=== PATIENT | male | born 1955 | race African-American/Black ===

== ENCOUNTER 2017-07-16 16:17 | Emergency (ER) | payer SELFPAY ==
[~2017-07-16] VITALS: Ht 175.3 cm; Wt 81.6 kg
--- NOTE | 2017-07-16 17:09 | Emergency Room Report ---
History of Present Illness General Chief Complaint: Pain Source: Patient Present Illness HPI Patient presents with right leg pain. He is unable to sleep and the pain is worsened for 3 days. He had the same problem several years ago but doesn't remember what the diagnosis was. He says it doesn't seem to have "sciatica". He denies any recent trauma, fever, blood thinners, incontinence, saddle numbness, oncologic problems. Not taking any medications. Pain now is 10/10, constant, radiating down his R leg. No dysuria, chest pain, dyspnea, calf pain/swelling, hemoptysis, weakness. No change in bowels. Allergies: Coded Allergies: No Known Allergies (Unverified , 07/16/17) Patient History Past Medical History: see triage record Social History: Reports: smoking Social History Narrative landscape architect Reviewed Nursing Documentation: PMH: Agreed, PSxH: Agreed Nursing Documentation-PMH Past Medical History: No Stated History Review of Systems All Other Systems: negative except mentioned in HPI Physical Exam Vital Signs Date Time Temp Pulse Resp B/P (MAP) Pulse Ox O2 Delivery O2 Flow Rate FiO2 07/16/17 16:25 98.2 85 17 176/102 98 Room Air Sp02 EP Interpretation: reviewed, normal General Appearance: well appearing, no apparent distress, GCS 15, non-toxic Head: normocephalic, atraumatic Eyes: bilateral eye PERRL, bilateral eye abnormal EOM - dyscongugate gaze ENT: hearing grossly normal, normal voice, moist mucus membranes Neck: full range of motion, supple Respiratory: normal breath sounds, no respiratory distress, speaking full sentences Cardiovascular #1: regular rate, rhythm Cardiovascular #2: 2+ radial (R) Gastrointestinal: normal inspection, non tender, scaphoid Musculoskeletal: digits/nails normal, no calf tenderness, pelvis stable, other - SLR + R at 45 degrees, worsens pain. Back with some muscle spasm, no deformity, walks with limp Neurologic: alert, oriented x3, motor strength/tone normal - slight weak toe raise (WHL), DTRs symmetric, sensory intact, cerebellar normal, speech normal Psychiatric: mood/affect normal Reflexes: 1+ knee (R), 1+ knee (L), 1+ ankle (R), 1+ ankle (L) Skin: no rash Medical Decision Making Diagnostic Impression: Primary Impression: Sciatica Qualified Codes: M54.31 - Sciatica, right side ER Course Patient presents with R leg pain. Ddx: sciatica, strain, DVT, arthritis, gout amongst others. Exam against DVT and most consistent with sciatica. No red flag signs or symptoms. Will treat with antiinflammatory meds and analgesia. Giving motrin. Advised patient that if pain not controlled to return and further studies would be performed. Patient stable for outpatient observation and treatment. Last Vital Signs Date Time Temp Pulse Resp B/P (MAP) Pulse Ox O2 Delivery O2 Flow Rate FiO2 07/16/17 17:38 97.6 78 16 159/98 100 Room Air Status: improved Disposition: HOME, SELF-CARE Condition: Improved Scripts Ibuprofen* (MOTRIN*) 600 Mg Tablet 600 MG ORAL Q6H Y for For Pain, #20 TAB Prov: Tobias Ayala M.D. 07/16/17 Tramadol Hcl* (ULTRAM*) 50 Mg Tablet 50 MG ORAL Q6H Y for For Pain, #16 TAB 0 Refills Prov: Tobias Ayala M.D. 07/16/17 Tobias Ayala M.D. Jul 16, 2017 17:09
[2017-07-16] MEDS ORDERED: TRAMADOL HCL50 MG ORAL (17:13)
[2017-07-16] MEDS ORDERED: IBUPROFEN600 MG ORAL (17:13)
[2017-07-16 17:37] VITALS: BP 159/98
[2017-07-16 17:38] VITALS: BP 159/98
== END 2017-07-16 17:38 | disposition home or self-care (01) ==
LOC: EMR 16:50
DX: M54.31 Sciatica, right side (principal); F17.200 Nicotine dependence, unspecified, uncomplicated
CPT/HCPCS: 99283